=== PATIENT | female | born 1980 | race Caucasian/White ===

== ENCOUNTER 2016-12-17 21:38 | Emergency (ER) | payer OTHER, SELFPAY ==
[2016-12-17] MEDS ORDERED: traMADol HCl 50 MG TAB ONE (22:26)
[2016-12-17] MEDS ORDERED: Ketorolac Tromethamine 60 MG/2 ML VIAL ONE (22:27)
--- NOTE | 2016-12-18 07:10 | RAD ---
RIGHT FOOT 3 VIEWS: Date: 12/17/16 No prior films area available for comparison. FINDINGS: There is a small bony chip at the base of the 5th metatarsal tuberosity. Its margins are slightly sm ooth, suggesting that this is an old avulsion injury as opposed to a recent one. Other than this, th e bones of the foot appear normal. No fractures or periosteal reaction was seen elsewhere. IMPRESSION: Tiny avulsion at the base of the 5th metatarsal, more likely old than new. POS: HOME
== END 2016-12-17 22:40 | disposition home or self-care (01) ==
LOC: BURERS 21:38
DX: M77.51 Other enthesopathy of right foot and ankle (principal); E03.9 Hypothyroidism, unspecified; E28.2 Polycystic ovarian syndrome; F41.9 Anxiety disorder, unspecified; F32.9 Major depressive disorder, single episode, unspecified
CPT/HCPCS: 96372; J1885

== ENCOUNTER 2017-01-16 11:33 | Emergency (ER) | payer SELFPAY ==
[2017-01-16 12:18] LABS: PTT 28.5 SEC (22.9-36.1); Prothrombin Time 13.6 SEC (12.0-14.7)
[2017-01-16 12:22] LABS: Pregs Control Background? CLEAR/WHITE (CLR/WHITE); Pregs Control Bar Appear? YES (CONTROL BAR)
[2017-01-16 12:23] LABS: #Basophils 0.1 thou/uL (0.0-0.2); #Eosinphils 0.1 thou/uL (0.0-0.7); #Lymphocytes 2.5 thou/uL (1.20-3.40); #Monocytes 0.5 thou/uL (0.11-0.59); #Neutrophils 4.9 thou/uL (1.40-6.50); %Eosinophils 1.8 % (0.0-10.0); %Lymphocytes 30.9 % (21.0-51.0); %Monocytes 5.7 % (0.0-10.0); %Neutrophils 60.7 % (42.0-75.0); Hemoglobin 14.8 g/dL (12.0-16.0); Mean Corpuscular HGB CONC 33.7 g/dL (32.0-36.0); Mean Corpuscular Hemoglobin 30.9 pg (27.0-31.0); Mean Corpuscular Volume 91.7 fl (81.0-99.0); Mean Platelet Volume 10.4 fL (7.4-10.4); Platelet Count 174 thou/uL (130-400); RBC Distribution Width 12.3 % (11.5-14.5); Red Blood Cell (RBC) Count 4.79 mill/uL (4.20-5.40); White Blood Cell (WBC) Count 8.1 thou/uL (4.8-10.8)
[2017-01-16 12:25] LABS: BHCG - Serum Negative (NEGATIVE)
== END 2017-01-16 12:46 | disposition home or self-care (01) ==
LOC: BURERS 11:33
DX: N92.5 Other specified irregular menstruation (principal); E03.9 Hypothyroidism, unspecified; F41.9 Anxiety disorder, unspecified; F32.9 Major depressive disorder, single episode, unspecified; Z79.899 Other long term (current) drug therapy
CPT/HCPCS: 84703; 85025; 85610; 85730; 99284

== ENCOUNTER 2017-08-17 17:18 | Outpatient (CLI) | payer OTHER ==
--- NOTE | 2017-08-17 20:18 | RAD ---
RIGHT SHOULDER THREE VIEWS: 08/17/2017 FINDINGS: Three views show no acute fracture or dislocation. The AC joint is normal in width. Deformity of th e humeral neck suggests prior trauma here. IMPRESSION: Old changes but no acute finding. POS: HOME
== END 2017-08-17 17:19 | disposition home or self-care (01) ==
LOC: BURRAD 17:18
PROVIDERS: ATTEND Family Medicine
DX: M25.511 Pain in right shoulder (principal)

== ENCOUNTER 2017-09-06 03:08 | Emergency (ER) | payer OTHER ==
[2017-09-06 03:39] LABS: #Basophils 0.1 thou/uL (0.0-0.2); #Eosinphils 0.1 thou/uL (0.0-0.7); #Lymphocytes 3.6 thou/uL (1.20-3.40); #Monocytes 0.9 thou/uL (0.11-0.59); #Neutrophils 4.3 thou/uL (1.40-6.50); %Eosinophils 1.6 % (0.0-10.0); %Lymphocytes 39.9 % (21.0-51.0); %Monocytes 9.8 % (0.0-10.0); %Neutrophils 47.7 % (42.0-75.0); Hemoglobin 14.4 g/dL (12.0-16.0); Mean Corpuscular HGB CONC 35.8 g/dL (32.0-36.0); Mean Corpuscular Hemoglobin 29.6 pg (27.0-31.0); Mean Corpuscular Volume 82.6 fL (78.0-98.0); Mean Platelet Volume 8.4 fL (7.4-10.4); Platelet Count 198 thou/uL (130-400); RBC Distribution Width 12.4 % (11.5-14.5); Red Blood Cell (RBC) Count 4.85 mill/uL (4.20-5.40)
[2017-09-06] MEDS ORDERED: Nitroglycerin 0.4 MG TAB (25 Tab Bottle) ONE (03:40)
[2017-09-06 03:51] LABS: ALT (SGPT) 30 U/L (8-55); AST (SGOT) 20 U/L (5-34); Albumin 4.1 g/dL (3.5-5.0); Alkaline Phosphatase 72 U/L (40-150); Anion Gap 14 mmol/L (10-20); BUN (Urea Nitrogen) 10 mg/dL (7.0-18.7); Bilirubin, Total 0.4 mg/dL (0.2-1.2); Calc. Creatinine Clearance 0 mL/min (70-130); Calcium 9.5 mg/dL (7.8-10.44); Carbon Dioxide 24 mmol/L (22-29); Chloride 108 mmol/L (98-107); Estimated GFR-MDRD Greater than 90; Globulin 3.1 g/dL (2.4-3.5); Glucose 83 mg/dL (70-105); Potassium 3.7 mmol/L (3.5-5.1); Protein, Total 7.2 g/dL (6.0-8.3); Sodium 142 mmol/L (136-145)
[2017-09-06 03:55] LABS: CKMB 0.4 ng/mL (0-6.6); Troponin I Less than 0.010 ng/mL (< 0.028)
[2017-09-06] MEDS ORDERED: Ketorolac Tromethamine 30 MG/ML VIAL ONE (04:04)
[2017-09-06] MEDS ORDERED: Lidocaine Viscous Sol 2% 15 ml UD Cup ONE (04:40)
[2017-09-06] MEDS ORDERED: Mag-Al Plus 1200 MG/1200 MG/120 MG/30 ML UDCUP ONE (04:40)
[2017-09-06] MEDS ORDERED: HYDROcodone/Acetaminophen 5/325 mg Tablet ONE ×2 (05:10)
--- NOTE | 2017-09-06 09:35 | RAD ---
PORTABLE CHEST: Date: 09/06/17 HISTORY: Chest pain. COMPARISON: 08/18/17. FINDINGS: Lung aldrich are clear. No infiltrate or vascular congestion. Heart and mediastinum unremarkable. IMPRESSION: No acute findings. POS: [facility]
== END 2017-09-06 05:19 | disposition home or self-care (01) ==
LOC: BURERS 03:08
DX: R07.89 Other chest pain (principal); E03.9 Hypothyroidism, unspecified; F41.9 Anxiety disorder, unspecified; F32.9 Major depressive disorder, single episode, unspecified
CPT/HCPCS: 71045; 80053; 82553; 83690; 84484; 85025; 85379; 93005; 94760; 96374; J1885

== ENCOUNTER 2018-02-03 00:08 | Emergency (ER) | payer MEDICAID, OTHER ==
[2018-02-03] MEDS ORDERED: Acetaminophen/Codeine 30-300mg Tablet ONE (00:19)
[2018-02-03] MEDS ORDERED: Adacel (T-DAP) 0.5 ML VIAL ONE (00:19)
[2018-02-03] MEDS ORDERED: Sulfameth/Trimethoprim DS 800-160mg TAB ONE (00:20)
== END 2018-02-03 00:35 | disposition home or self-care (01) ==
LOC: BURERS 00:08
DX: S71.111A Laceration without foreign body, right thigh, initial encounter (principal); Z23 Encounter for immunization; E03.9 Hypothyroidism, unspecified; F41.9 Anxiety disorder, unspecified; F32.9 Major depressive disorder, single episode, unspecified; W22.8XXA Striking against or struck by other objects, initial encounter
CPT/HCPCS: 12001; 90471; 90715

== ENCOUNTER 2018-09-18 13:45 | Emergency (ER) | payer OTHER ==
[2018-09-18] MEDS ORDERED: Prochlorperazine 10 MG/2 ML VIAL ONE (14:23)
[2018-09-18 14:43] LABS: Pregu Control Background? CLEAR/WHITE (CLR/WHITE); Pregu Control Bar Appear? YES (CONTROL BAR)
[2018-09-18 14:44] LABS: Bilirubin Negative (Negative); Blood, Urine Trace (Negative); Clarity Cloudy (Clear); Glucose, Urine (Dipstick) Negative (Negative); Leukocyte Negative (Negative); Nitrite Negative (Negative); Pregnancy Test - Urine (BHCG) POSITIVE (Negative); Protein, Urine (Dipstick) Negative (Neg-Trace); Urobilinogen 0.2 mg/dL (Less than 2)
[2018-09-18 14:47] LABS: #Basophils 0.1 thou/uL (0.0-0.2); #Eosinphils 0.1 thou/uL (0.0-0.7); #Monocytes 0.7 thou/uL (0.11-0.59); #Neutrophils 6.8 thou/uL (1.40-6.50); %Basophils 0.9 % (0.0-1.0); %Eosinophils 0.8 % (0.0-10.0); %Lymphocytes 20.5 % (21.0-51.0); %Neutrophils 70.8 % (42.0-75.0); Hemoglobin 13.8 g/dL (12.0-16.0); Mean Corpuscular HGB CONC 33.2 g/dL (32.0-36.0); Mean Corpuscular Hemoglobin 28.9 pg (27.0-31.0); Mean Corpuscular Volume 87.1 fL (78.0-98.0); Mean Platelet Volume 9.3 fL (7.4-10.4); Platelet Count 198 thou/uL (130-400); RBC Distribution Width 12.4 % (11.5-14.5); Red Blood Cell (RBC) Count 4.76 mill/uL (4.20-5.40); White Blood Cell (WBC) Count 9.6 thou/uL (4.8-10.8)
[2018-09-18 14:52] LABS: RBC/HPF 0-3 HPF (0-3); Renal Epithelial None Seen HPF (None Seen); Transitional Epithelial None Seen HPF (None Seen)
[2018-09-18 14:53] LABS: Bacteria/HPF 1+ HPF (None Seen); Epithelial Cast None Seen LPF (None Seen); Mucous/LPF None Seen LPF (<2+); Oval Fat Bodies/HPF None Seen HPF (None Seen); Sperm/HPF None Seen HPF (None Seen); Trichomonas/HPF None Seen HPF (None Seen); Yeast-Budding None Seen HPF (None Seen); Yeast-Hyphae None Seen HPF (None Seen)
[2018-09-18 14:54] LABS: Broad Cast None Seen LPF (None Seen); Calcium Oxalate Crystals None Seen HPF (None Seen); Cellular Cast None Seen LPF (None Seen); Fatty Cast None Seen LPF (None Seen); Other Casts None Seen LPF (None Seen); Red Blood Cell Cast None Seen LPF (None Seen); Triple Phosphate Crystal None Seen HPF (None Seen); Unclassified Crystals None Seen HPF (None Seen); Waxy Cast None Seen LPF (None Seen)
[2018-09-18] MEDS ORDERED: diphenhydrAMINE 50 MG/ML VIAL ONE (16:00)
[2018-09-18 16:31] LABS: ALT (SGPT) 16 U/L (8-55); AST (SGOT) 19 U/L (5-34); Albumin 4.4 g/dL (3.5-5.0); Alkaline Phosphatase 57 U/L (40-150); Anion Gap 16 mmol/L (10-20); BUN (Urea Nitrogen) 12 mg/dL (7.0-18.7); Bilirubin, Total 0.3 mg/dL (0.2-1.2); Calc. Creatinine Clearance 0 mL/min (70-130); Calcium 9.9 mg/dL (7.8-10.44); Carbon Dioxide 19 mmol/L (22-29); Chloride 105 mmol/L (98-107); Estimated GFR-MDRD 78; Globulin 3.4 g/dL (2.4-3.5); Glucose 91 mg/dL (70-105); Potassium 3.8 mmol/L (3.5-5.1); Protein, Total 7.8 g/dL (6.0-8.3); Sodium 136 mmol/L (136-145)
== END 2018-09-18 16:42 | disposition home or self-care (01) ==
LOC: BURERS 13:45
DX: R11.2 Nausea with vomiting, unspecified (principal); R19.7 Diarrhea, unspecified; F32.9 Major depressive disorder, single episode, unspecified; Z79.84 Long term (current) use of oral hypoglycemic drugs; Z79.891 Long term (current) use of opiate analgesic
CPT/HCPCS: 80053; 81003; 81015; 81025; 84702; 85025; 87086; 96361; 96374; 96375; J0780; J1200

== ENCOUNTER 2022-06-19 19:08 | Emergency (ER) | payer SELFPAY ==
[2022-06-19] MEDS ORDERED: Acetaminophen 500 MG TAB ONE (20:29)
== END 2022-06-19 20:31 | disposition home or self-care (01) ==
LOC: BURERS 19:08
DX: S60.211A Contusion of right wrist, initial encounter (principal); E11.9 Type 2 diabetes mellitus without complications; E03.9 Hypothyroidism, unspecified; W50.0XXA Accidental hit or strike by another person, initial encounter

== ENCOUNTER 2022-08-20 11:30 | Emergency (ER) | payer SELFPAY | END 2022-08-20 12:23 | disposition home or self-care (01) | LOC: BURERS 11:30 | DX: J20.9 Acute bronchitis, unspecified (principal); E11.9 Type 2 diabetes mellitus without complications; E03.9 Hypothyroidism, unspecified | CPT/HCPCS: 99282 ==